=== PATIENT | female | born 1935 | race African-American/Black ===

== ENCOUNTER 2016-11-01 10:09 | Observation (INO) | payer MEDICARE, OTHER ==
[~2016-11-01] VITALS: Ht 165.1 cm; Wt 55.8 kg
[~2016-11-01 10:09] MED LIST: ASPI-498 PO; CYCL0.05 EACHEYE; EZET10TA47 PO; FLU05NSL; MEM5T PO; MET50T PO; POTA10IN PO; PRE5T PO; RABE20TA5 PO; VALS320T15 PO
[2016-11-01 13:22] LABS: Basophils # (auto) 0 uL; Basophils % (auto) 0.2 % (0.0-2.0); Eosinophils # (auto) 0.1 uL; Eosinophils % (auto) 2.3 % (0.0-7.0); Hematocrit 39.9 % (36.0-46.0); Lymphocytes # (auto) 1.2 uL; Lymphocytes % (auto) 21.9 % (10.0-50.0); Mean Corpuscular Hemoglobin 29.6 pg (28.0-32.0); Mean Corpuscular Hgb Conc. 32.7 g/dL (32.0-36.0); Mean Corpuscular Volume 90.6 fL (80.0-100.0); Mean Platelet Volume 8.6 fL (7.4-10.4); Monocytes # (auto) 0.8 uL; Monocytes % (auto) 14.9 % (0.0-12.0); Neutrophils # (auto) 3.2 uL; Neutrophils % (auto) 60.7 % (37.0-80.0); Platelet Count (auto) 198 10^3/uL (140-450); Red Cell Distribution Width 13.4 % (11.6-16.0); White Blood Cell 5.3 10^3/uL (4.4-10.8)
[2016-11-01 13:37] LABS: BUN/Creatinine Ratio 13.8
[2016-11-01 14:03] LABS: Potassium 2.6 mmol/L (3.5-5.1)
[2016-11-01 15:22] VITALS: BP 197/91
[2016-11-01 15:41] LABS: Albumin 3.5 g/dL (3.4-5.0); Alkaline Phosphatase 93 U/L (45-117); Aspartate Aminotransferase 25 U/L (15-37); Bilirubin, Total 0.5 mg/dL (0.2-1.0); Magnesium 2.2 mg/dL (1.6-2.6); Total Protein 7.3 g/dL (6.4-8.2)
[2016-11-01] MEDS ORDERED: POTASSIUM CHL 20 Meq TABLET PO ONE ×2 (16:15→17:30)
== END 2016-11-01 19:07 | disposition left against medical advice (07) | DRG 884 ==
LOC: EDSEX 10:09 → ER 10:09 → EDUNIT# 10:09 → OVERFLOW 15:02 → ER 19:07
PROVIDERS: ADMIT Family Medicine; ATTEND Family Medicine
DX: R45.1 Restlessness and agitation (principal); E87.0 Hyperosmolality and hypernatremia; F03.90 Unspecified dementia, unspecified severity, without behavioral disturbance, psychotic disturbance, mood disturbance, and anxiety; E87.6 Hypokalemia; I10 Essential (primary) hypertension; Z82.49 Family history of ischemic heart disease and other diseases of the circulatory system; R53.1 Weakness; K21.9 Gastro-esophageal reflux disease without esophagitis
CPT/HCPCS: 36415; 80048; 82040; 82247; 83735; 84075; 84155; 84450; 84460; 84484; 85025; 93005; 99285; G0378